=== PATIENT | male | born 1980 | race Caucasian/White ===

== ENCOUNTER 2017-02-07 10:05 | Emergency (ER) | payer OTHER ==
[2017-02-07 10:21] VITALS: TEMP 97.7
[2017-02-07] MEDS ORDERED: NS 1,000 ML IV ONE ×2 (10:33→11:32)
[2017-02-07] MEDS ORDERED: fentaNYL 100 MCG/2 ML INJ ONE (10:43)
--- NOTE | 2017-02-07 10:44 | CPEKG ---
Heart Rate: 159 RR Interval: 377 QRSD Interval: 80 QT Interval: 292 QTC Interval: 476 QRS [place]: -55 T Wave [place]: 14 EKG Severity - ABNORMAL ECG - EKG Impression: A-FLUTTER W/ PREDOM 2:1 AV BLOCK, A-RATE 326 EKG Impression: LEFT ANTERIOR FASCICULAR BLOCK Electronically Signed By: Petra Sarmiento 07-Feb-2017 17:07:34
--- NOTE | 2017-02-07 10:46 | EDPHY ---
H & P Stated Complaint: Passed out at work; R shoulder/rib pain;hit head;stopped diabetic meds~1wk Source: Patient Exam Limitations: No limitations - Personal History Current Tetanus Diphtheria and Acellular Pertussis (TDAP): Yes - Medical/Surgical History Hx Diabetes: Yes Other PMH: diabetic. back problems - Social History Smoking Status: Former smoker HPI/ROS: CHIEF COMPLAINT: Syncope, head injury, right shoulder pain HISTORY OF PRESENT ILLNESS: Patient was at work. He was standing looking at a serpentine belt when he lost consciousness. He denies any chest pain or shortness of breath. No fever chills. He did strike his head and has a headache. He also complains of severe right shoulder pain. No abdominal pain. No injuries to the legs or left arm. History of syncope in the past with no formal workup per EKG. No history of seizures. No history of coronary artery disease. Does have a history of diabetes. He stopped his medications recently due to Chantix. He was on metformin and glipizide. No other associated complaints or modifying factors. He arrives by private vehicle with a friend driving him here. REVIEW OF SYSTEMS: Ten systems reviewed and are negative unless otherwise noted in the HPI PAST MEDICAL HISTORY: Diabetes SOCIAL HISTORY: Smoker currently trying to quit. Works at [employer] FAMILY HISTORY: Noncontributory EXAMINATION General Appearance: Alert, no distress Head: normocephalic. Abrasion and small hematoma to the right frontal forehead. No hematoma. No Carbajal sign. No raccoon eyes. Eyes: Pupils equal and round, no conjunctival pallor or injection. EOMs intact. ENT, Mouth: Mucous membranes moist. Airway patent. Neck: Normal inspection, supple, non-tender. No crepitus, step-off or deformity. Trachea is midline Respiratory: Lungs are clear to auscultation. No wheezing, rhonchi or crackles Cardiovascular: Regular rate and rhythm. No murmur. Pulses intact distally. Gastrointestinal: Abdomen is soft and nontender Back: non-tender, no bony abnormalities Neurological: GCS 15. A&O, cranial nerves 2-12 grossly intact. nonfocal. Strength symmetric in all 4 limbs. Skin: Warm and dry, no rash. Abrasion to the right forehead. No other lacerations or contusions Extremities: Severe tenderness of the right shoulder. Unable to range the right shoulder. Obvious step-off of the right shoulder glenohumeral joint. Neurovascular intact distally. Range of motion of the right elbow and wrist is intact. Psychiatric: Mood and affect normal DIFFERENTIAL DIAGNOSES: Including but not limited to syncope, shoulder dislocation, atrial flutter, AFib , sinus tachycardia, dehydration, ACS MDM: 10:45 a.m. Syncope with closed head injury, right shoulder dislocation. EKG does reveal a flutter with a rate of 159. The patient is awake and alert. Pressure is normal. Move him to trauma room a proceed with rate control measures. 11:00 a.m. Repeat EKGs after Valsalva maneuvers reveal sinus tachycardia and subsequently normal sinus rhythm. He remains on the quality assurance monitor final. He is awake and alert. No acute distress. Normal blood pressure. I have attempted to reduce the right shoulder with lidocaine injection. There is improvement of the appearance of the shoulder and difficulty developed this was successful. He has receive IV fentanyl and we will add IV Valium. He has been evaluated by Dr. Sarmiento. X-ray pending 11:40 a.m. X-ray reveals no dislocation of the shoulder. No obvious fracture. There is complete disruption of the right AC joint. Chest x-ray otherwise unremarkable. Vital signs remained stable. He does have multiple PVCs on the monitor. No malignant rhythm. Normal pressure. Proceed with CT scan of the head and admission to the hospital. 12:25 p.m. Notified by radiologist Dr. Mcelroy that the CT scan of the head is unremarkable. CT scan cervical spine is unremarkable. There is incidental note of a nondisplaced right 3rd rib fracture. I have re-evaluated the patient. He is resting comfortably. He is awake and alert. Normal pressure. Sinus rhythm on the monitor. I recommend admission to the hospital. Thus far he is declining. He would like to speak to his before he makes his final decision. He is doing so right now 1:[address] Sarmiento has also visit with the patient. He continues to decline admission. We discussed risks, benefits and alternatives in detail. This includes worsening condition, syncope or . He is alert and oriented. He is capable of understanding the risk. He is capable of making this decision and still chooses to go home despite this discussion. I will consult Cardiology to help expedite his follow-up given his refusal to be admitted. We will proceed with discharge against medical advice with formal AMA form. 1:10 p.m. I discussed the case with Dr. Murillo. He will come evaluate the patient in the emergency department shortly 1:[address] Murillo has evaluated the patient. He feels the patient needs a stress test and to be seen by an co chairman. Dr. Murillo actually recommends that the patient stay in the hospital but the patient continues to refuse. He says that if the patient still wants to sign out against medical advice, he would not recommend the following. He recommends metoprolol tartrate 25 mg every night. He recommends that the patient have a stress test performed. He recommends that the patient see an co chairman. He is provided the name of Dr. Pizarro as well as Dr. Beltran. The patient still wants to be discharge against medical advice but says he will follow up with these physicians accordingly. We discussed not operating any machinery or vehicles. We discussed follow up with Orthopedics regarding shoulder dislocation and AC separation. I instructed him to return to the emergency department should he change his mind regarding admission, have any chest pain, or have any further syncope I once again asked him to stay for admission continuing to decline. He will be discharged against medical advice with AMA form completed. He is stable at time of discharge. Normal sinus rhythm on the monitor at time of discharge. PROCEDURE: Closed reduction of right shoulder Consent: Verbal Location: Right shoulder Anesthesia: IV fentanyl, intra-articular lidocaine, 1% lidocaine plain, 7 mL Procedure: After lidocaine was injected into the joint the patient received IV fentanyl, attempted to reduce the right shoulder with traction/counter traction. I abduct the shoulder completely. There was improvement in the appearance of the shoulder but I did not feel a complete reduction. Complications: None Post-reduction film: No dislocation. No obvious fracture. There is complete AC disruption SUPERVISION: Patient was evaluated in conjunction with the supervising physician. Please see their note for details. (Sreedhar Sheridan) Constitutional: Initial Vital Signs Temperature (C) 36.5 C 02/07/17 10:10 Heart Rate 90 02/07/17 10:10 Respiratory Rate 18 02/07/17 10:10 Blood Pressure 100/73 02/07/17 10:10 O2 Sat (%) 96 02/07/17 10:10 O2 Delivery Mode Room Air O2 (L/minute) 4 Allergies/Adverse Reactions: Penicillins Allergy (Mild, Verified 02/07/17 10:17) Rash Home Medications: Medication Instructions Recorded Hydrocodone/APAP 5/325 [[place] 1 - 2 tab PO Q4H PRN #14 tab 02/07/17 5/325 (*)] Ibuprofen [Motrin (*)] 200 mg PO DAILY PRN 02/07/17 Metoprolol Tartrate [Lopressor 25 25 mg PO HS #30 tab 02/07/17 mg (*)] Varenicline Tartrate [Chantix 1MG 1 mg PO BID 02/07/17 (*)] Medical Decision Making - Diagnostics EKG Interpretation: 12 lead EKG is interpreted in Trace master View by emergency department physician. The 1st EKG showed atrial flutter. 2nd EKG showed what appears to be atrial fibrillation, discussed with Dr. Murillo. 30 EKG shows sinus rhythm. I have reviewed all of the EKGs. (Petra Sarmiento) ED Course/Re-evaluation: I have evaluated and participated in the management of this patient. My co- signature indicates that I have reviewed this chart and that I agree with the findings and the plan of care as documented. My personal history and physical findings include: 36-year-old male with a history of type 2 diabetes who presents by private vehicle after a syncopal episode. He has had syncope in the past. Today he struck his head and complains of headache. He also complains of shoulder pain and on examination has a right shoulder dislocation. At the time of my initial evaluation he was undergoing shoulder reduction. monitoring analyst showed a sinus tachycardia. He was awake and alert. Breath sounds were clear. The shoulder was successfully reduced in the emergency department by the physician resident care assistant. He is noted to have a grade 3 AC separation. His initial EKG showed atrial flutter with subsequent sinus rhythm. No medication was given, he converted spontaneously. Head and neck imaging negative for acute injury. He has remained neurologically intact in the department. It is my opinion that his syncopal episode is due to cardiac tachy arrhythmia. Hospitalization was strongly recommended. He has both if her asleep refused. I have spoken to him about this. My expectation is that he will leave against medical advice. Dr. Murillo of Cardiology was kind enough to see him in the emergency department. He also recommended hospitalization. The patient continues to refuse. The patient is able to make his own medical decisions and understands the risks and benefits, including the risk of recurrent arrhythmia, syncope, and even . He is started on low-dose beta-brittanie. He is given referrals to electrophysiologists. (Petra Sarmiento) - Data Points Laboratory Results: Laboratory Results 02/07/17 10:45 02/07/17 10:45 Medications Given: Discontinued Medications Diazepam (Valium Injection) 2 mg IVP EDNOW ONE Stop: 02/07/17 11:00 Last Admin: 02/07/17 11:04 Dose: 2 mg Fentanyl (Sublimaze) 100 mcg IVP EDNOW ONE Stop: 02/07/17 10:48 Last Admin: 02/07/17 10:48 Dose: 100 mcg Sodium Chloride (Ns) 1,000 mls @ 0 mls/hr IV ONCE ONE; Wide Open PRN Reason: Protocol Stop: 02/07/17 10:34 Last Admin: 02/07/17 10:48 Dose: 1,000 mls Sodium Chloride (Ns) 1,000 mls @ 0 mls/hr IV ONCE ONE PRN Reason: Wide Open Stop: 02/07/17 11:33 Last Admin: 02/07/17 11:34 Dose: 1,000 mls Departure - Departure Disposition: Against Medical Advice Clinical Impression: Syncope and collapse, Atrial flutter, Acromioclavicular (joint) (ligament) sprain Condition: Good Instructions: Atrial Flutter (ED), A-fib (Atrial Fibrillation) (ED), Shoulder Dislocation (ED), Syncope (ED), Shoulder Sprain (ED) Additional Instructions: 1. Return to the emergency department immediately should you change your mind or for any chest pain or syncope 2. Do not operate any vehicles or machinery until seen by Cardiology and primary care physician 3. Follow up with patient placement coordinator for outpatient stress test and further EP evaluation. Call Dr. Pziarro at [phone] 4. Metoprolol as prescribed Referrals: Deric Hall MD [Medical Doctor] - As per Instructions Alphonse Gamino DO [Primary Care Provider] - As per Instructions Mahamed Beltran MD [Medical Doctor] - As per Instructions Prescriptions: Hydrocodone/APAP 5/325 [[place] 5/325 (*)] 1 - 2 tab PO Q4H PRN #14 tab PRN Reason: Pain, Moderate Metoprolol Tartrate [Lopressor 25 mg (*)] 25 mg PO HS #30 tab
[2017-02-07] MEDS ORDERED: fentaNYL 100 MCG/2 ML INJ IVP ONE (10:47)
[2017-02-07 10:54] LABS: % IMMATURE GRANULYOCYTES 0.5 % (0.0-1.1); ABSOLUTE IMMATURE GRANULOCYTES 0.04 10^3/uL (0.00-0.10); ADD DIFF? NO; ADD MORPH? NO; ADD SCAN? NO; ATYPICAL LYMPHOCYTE FLAG 0 (0-99); FRAGMENT RBC FLAG 0 (0-99); HEMATOCRIT 47.3 % (40.0-51.0); HEMOGLOBIN 16.8 g/dL (13.7-17.5); LEFT SHIFT FLG 0 (0-99); LIPEMIA HEMOLYSIS FLAG 90 (0-99); MEAN CELL HEMOGLOBIN 31.5 pg (27.9-34.1); MEAN CELL HEMOGLOBIN CONCENTR. 35.5 g/dL (32.4-36.7); MEAN CELL VOLUME 88.7 fL (81.5-99.8); MEAN PLATELET VOLUME 9.6 fL (8.7-11.7); PLATELET CLUMPS FLAG 10 (0-99); PLATELET COUNT 294 10^3/uL (150-400); RED BLOOD CELL COUNT 5.33 10^6/uL (4.40-6.38); RED CELL DISTRIBUTION WIDTH 11.9 % (11.5-15.2)
[2017-02-07] MEDS ORDERED: DIAZEPAM 10 MG/2 ML SYR IVP ONE (10:59)
[2017-02-07 11:08] LABS: ALANINE AMINOTRANSFERASE 51 IU/L (21-72); ALKALINE PHOSPHATASE 58 IU/L (38-126); ANION GAP 17 mEq/L (8-16); ASPARTATE AMINOTRANSFERASE 35 IU/L (17-59); BILIRUBIN,TOTAL 1.1 mg/dL (0.1-1.4); BILIRUBIN-CONJUGATED 0.4 mg/dL (0.0-0.5); BILIRUBIN-UNCONJUGATED 0.7 mg/dL (0.0-1.1); CALCIUM 10.3 mg/dL (8.5-10.4); CARBON DIOXIDE 21 mEq/l (22-31); CHLORIDE 100 mEq/L (97-110); CREATININE 0.7 mg/dL (0.7-1.3); GLOMERULAR FILTRATION RATE > 60; GLUCOSE 213 mg/dL (70-100); SODIUM 138 mEq/L (134-144); TOTAL PROTEIN 8.5 g/dL (6.3-8.2)
[2017-02-07 11:20] LABS: TROPONIN I < 0.012 ng/mL (0-0.034)
--- NOTE | 2017-02-07 13:47 | PDCONSULT ---
Mine Analyst Note: Chief complaint: syncope Requesting physician: ER team HPI: Patient is a 36 y/o male with history of DM, but recent cessation of therapy (rational was not clear), but no HTN, HLP, or CAD, who presented to ER after syncope. Event was without prodrome - no dizziness, lightheadedness, weakness, or fatigue. No complaints of chest pains or pressure, no PND orthopnea. Patient does have smoking history (quit about 3 weeks ago and is using Chantix) . Similar event was noted 5-6 months ago, but the event in the past had a prodrome for the patient. At that time, he was able to sit down, but even with this action, the patient succumbed to syncope. PCP evaluation, per patient, with concerns about "hypoglycemia". No formal cardiovascular work up was undertaken. The patient did report that he has had "events" in the past, but did not clarify the specifics of the events other than "passing out in the past ". ECG in the ER with notable atrial flutter (rate of 160 bpm, and 2:1 block). Imaging studies with grade III AC separation to right shoulder. Excoriation to the right forehead with CT imaging to head revealing no acute patholoyg. Reduction of the right shoulder in the ER was successful, and the patient converted to sinus tachycardia/sinus rhythm without medications or cardiovascular procedures. ER staff with recommendations for admission given the presentation - syncope with tachyarrhythmia - but the patient was simply wanting to go home, against medical advice. Call to cardiology for assistance with discussion of options, or possible convincing the patient to stay for evaluation. Twelve point review of systems was unremarkable outside of that which was mentioned above. PMHx: (1) DM - uncertain why therapies were stopped, but would reassess A1C to determine if this is therapy that should be continued (2) no HTN (3) no HLP (4) No CAD FHx: Father passed at age 40 secondary to "large heart attack" Grandfather with history of CHF SHx: Tobacco abuse history (recent cessation on Chantix patch) Social alcohol No illicits (including marijuana) Works at [employer] (co worker was present in the ER with patient) Allergies to PCN with unspecified reaction Currently Chantix therapy only (no other prescribed therapy) PE: vitals as below GEN: awake and alert in NAD SKIN: excoriation to right forehead secondary to fall, no other obvious rash or erythema HEENT: NCAT (mild haematoma to the right forehead), ENT were unremarkable NECK: supple with out JVD LUNGS: CTA bilaterally without crackles, wheeze, or rales COR: RRR without murmurs/rubs/gallops. Normal S1S2, no S3, PMI was non displaced ABD: soft, NTND with NABS EXT: no c/c/e, normal DP/PT pulses (2+), normal radial pulses (2+). NEURO: no focal deficits were noted Labs: no elevation in cardiac biomarker (troponin was normal). Laboratory Tests 02/07/17 02/07/17 10:45 10:45 WBC 8.79 Hgb 16.8 Hct 47.3 Plt Count 294 Sodium 138 Potassium 4.0 Chloride 100 Carbon Dioxide 21 L Anion Gap 17 H BUN 10 Creatinine 0.7 Glucose 213 H Troponin I < 0.012 Several ECGs with initial ECG revealing atrial flutter with rate of 160 bpm. 2: 1 conduction was noted. Subsequent ECG with conversion to sinus tachycardia and normal sinus rhythm. The second ECG in the series from the ER appeared to be atrial fibrillation, not flutter given the degree of irregularity noted. Imaging studies were reviewed with grade III AC separation to the right shoulder. Unremarkable CXR. Assessment: Agree with recommendation on the part of the ER team to have the patient admitted for observation. He was unwilling to pursue this recommendation. Would provide the patient with low dose beta brittanie (metoprolol tartrate 25 mg PO QHS) given blood pressure and heart rate would tolerate this dose, which may assist with some decrease in the patient's ability to revisit the tachycardia appreciated. Would have outpatient ETT arranged for assessment of CV risk as well as the patient's ability to revisit the noted arrhythmia. Finally, phone numbers for EP (Dr. Dionne Beltran, Dr. Oscar Haile, and Dr. Young Pizarro) were to be provided to the patient for follow up post testing, and to facilitate further discussion about options given the arrhythmia noted in the ER today. Patient was in agreement with these plans. Recommendations to refrain from tobacco use were reiterated.
[2017-02-07 14:15] VITALS: BP 132/88; PULSE 84; RESP 16; O2SAT 98
--- NOTE | 2017-02-07 15:49 | CPEKG ---
Heart Rate: 92 RR Interval: 652 P-R Interval: 140 QRSD Interval: 82 QT Interval: 344 QTC Interval: 426 P [place]: 36 QRS [place]: -24 T Wave [place]: 29 EKG Severity - OTHERWISE NORMAL ECG - EKG Impression: SINUS RHYTHM EKG Impression: BORDERLINE LEFT AXIS DEVIATION Electronically Signed By: Petra Sarmiento 07-Feb-2017 17:07:23
== END 2017-02-07 14:13 | disposition left against medical advice (07) ==
PROC: 0RSJXZZ Reposition Right Shoulder Joint, External Approach (ICD-10-PCS; principal; 2017-02-07)
DX: S43.004A Unspecified dislocation of right shoulder joint, initial encounter (principal); S43.51XA Sprain of right acromioclavicular joint, initial encounter; I48.92 Unspecified atrial flutter; R55 Syncope and collapse; E86.9 Volume depletion, unspecified; E11.9 Type 2 diabetes mellitus without complications; Z87.891 Personal history of nicotine dependence; X58.XXXA Exposure to other specified factors, initial encounter; Y92.69 Other specified industrial and construction area as the place of occurrence of the external cause; Y99.0 Civilian activity done for income or pay; Y93.89 Activity, other specified
CPT/HCPCS: 82947-QW; 96374; A4565; J3010

== ENCOUNTER 2017-03-30 05:28 | Day surgery (SDC) | payer OTHER, BC ==
[~2017-03-30 05:28] MED LIST: ceFAZolin 2 GM/DEXTROSE 100 ML IV ONE
[2017-03-30] MEDS ORDERED: LIDOCAINE 1% 2 ML INJ ID PRN (06:01)
[2017-03-30] MEDS ORDERED: LR 1,000 ML IV ONE (06:01)
[2017-03-30] MEDS ORDERED: BUPIVACAINE/EPI 0.5% 30 ML SDV ONE (06:59)
--- NOTE | 2017-03-30 07:05 | PDHPUP ---
History & Physical Update H&P update statement: This history and physical update is based on an assessment of the patient which was completed after admission or registration (within 24 hours), but prior to the surgery/procedure. H&P update: H&P reviewed & patient examined, no change in patient's condition since H&P completed
[2017-03-30] MEDS ORDERED: CEFAZOLIN 2 GM/DEXTROSE/100 ML BAG IV ONE (07:09)
[2017-03-30 07:10] LABS: ANION GAP 12 mEq/L (8-16); CARBON DIOXIDE 24 mEq/l (22-31); CHLORIDE 102 mEq/L (97-110); POTASSIUM 4.4 mEq/L (3.5-5.2); SODIUM 138 mEq/L (134-144); SPECIMEN HEMOLYSIS 125
[2017-03-30] MEDS ORDERED: PROPOFOL 200 MG/20 ML VIAL ONE (07:19)
[2017-03-30] MEDS ORDERED: ROCURONIUM 100 MG/10 ML VIAL ONE (07:19)
[2017-03-30] MEDS ORDERED: LIDOCAINE 2% 100 MG/5 ML SYR ONE (07:19)
[2017-03-30] MEDS ORDERED: METOCLOPRAMIDE 10 MG/2 ML VIAL ONE (07:19)
[2017-03-30] MEDS ORDERED: RANITIDINE 50 MG/2 ML VIAL ONE (07:19)
[2017-03-30] MEDS ORDERED: KETOROLAC 30 MG/1 ML SDV ONE (07:19)
[2017-03-30] MEDS ORDERED: MIDAZOLAM 2 MG/2 ML VIAL ONE (07:23)
[2017-03-30] MEDS ORDERED: PHENYLEPHRINE HCL 100 MCG/ML SYR ONE (07:50)
--- NOTE | 2017-03-30 08:38 | PDANEPAE ---
ANE Past Medical History - Cardiovascular History Hx Hypertension: Yes Hx Arrhythmias: Yes Hx Chest Pain: No Hx Coronary Artery / Peripheral Vascular Disease: No Hx CHF / Valvular Disease: No Hx Palpitations: Yes Cardiovascular History Comment: irregular will see customer energy specialist in a month - Pulmonary History Hx COPD: No Hx Asthma/Reactive Airway Disease: No Hx Recent Upper Respiratory Infection: No Hx Oxygen in Use at Home: No Hx Sleep Apnea: No Sleep Apnea Screening Result - Last Documented: Positive - Neurologic History Hx Cerebrovascular Accident: No Hx Seizures: No Hx Dementia: No - Endocrine History Hx Diabetes: Yes - Renal History Hx Renal Disorders: No - Liver History Hx Hepatic Disorders: No - Neurological & Psychiatric Hx Hx Neurological and Psychiatric Disorders: No - Cancer History Hx Cancer: No - Congenital Disorder History Hx Congenital Disorders: No - GI History Hx Gastrointestinal Disorders: No - Chronic Pain History Chronic Pain: No - Surgical History Prior Surgeries: right ACL, right knee scope ANE Review of Systems Review of Systems: - Exercise capacity METS (RN): 5 METS ANE Patient History - Allergies Allergies/Adverse Reactions: Penicillins Allergy (Mild, Verified 03/30/17 06:14) Rash - Home Medications Home Medications: Ibuprofen [Motrin (*)] 200 mg PO DAILY PRN 02/07/17 [Last Taken 03/09/17] Aspirin 81mg (*) 03/30/17 [Last Taken 03/29/17 08:30] GLIPIZIDE 10 mg 03/30/17 [Last Taken 03/29/17 08:30] Metformin 1000 mg 1,000 mg 03/30/17 [Last Taken 03/29/17 08:30] Multivit Infusn,Adult 1,Vit K 03/30/17 [Last Taken 03/29/17 08:30] Pioglitazone HCl 45 mg 03/30/17 [Last Taken 03/29/17 08:30] Vitamin D3 5,000 iunits 03/30/17 [Last Taken 03/29/17 08:30] - NPO status NPO Since - Liquids (Date): 03/29/17 NPO Since - Liquids (Time): 23:50 NPO Since - Solids (Date): 03/29/17 NPO Since - Solids (Time): 23:00 - Smoking Hx Smoking Status: Former smoker ANE Labs/Vital Signs - Labs Result Diagrams: 03/30/17 06:30 - Vital Signs Blood Pressure: 141/76 Heart Rate: 60 Respiratory Rate: 16 O2 Sat (%): 94 Height: 190.5 cm Weight: 92.986 kg ANE Physical Exam - Airway Neck exam: FROM Mallampati Score: Class 2 Mouth exam: normal dental/mouth exam - Pulmonary Pulmonary: no respiratory distress - Cardiovascular Cardiovascular: regular rate and rhythym - ASA Status ASA Status: III ANE Anesthesia Plan Anesthesia Plan: general endotracheal anesthesia Urgent/Emergent Case: Tommie lee completed preop but documented later for safe timely pt care
[2017-03-30] MEDS ORDERED: LR 500 ML IV PRN (10:29)
[2017-03-30] MEDS ORDERED: fentaNYL 100 MCG/2 ML INJ IVP PRN (10:29)
[2017-03-30] MEDS ORDERED: NALOXONE HCL 0.4 MG/ML INJ IVP PRN (10:29)
[2017-03-30] MEDS ORDERED: ACETAMINOPHEN 500 MG TAB PO PRN (10:29)
[2017-03-30] MEDS ORDERED: ONDANSETRON 4 MG/2 ML VIAL IVP PRN (10:29)
[2017-03-30] MEDS ORDERED: ALBUTEROL 3 ML DEYVIAL IH PRN (10:29)
[2017-03-30] MEDS ORDERED: OXYCODONE/APAP 5/325 TAB PO PRN (10:29)
[2017-03-30] MEDS ORDERED: HYDROmorphONE/DILAUDID 1 MG/ML INJ IVP PRN (10:29)
[2017-03-30] MEDS ORDERED: HYDROCODONE/APAP 5/325 TAB PO PRN (10:29)
[2017-03-30] MEDS ORDERED: MEPERIDINE 25 MG/ML SYR IVP PRN (10:29)
--- NOTE | 2017-03-30 10:29 | POSTANESTH ---
Post Anesthetic Evaluation Cardiovascular Status: Normal, Stable Respiratory Status: Normal, Stable Level of Consciousness/Mental Status: Can Participate in Eval Pain Control: Adequate, Prn Tx Ordered Nausea/Vomiting Control: Adequate, Prn Tx Ordered Complications Possibly Related to Anesthesia: None Noted
[2017-03-30] MEDS ORDERED: ONDANSETRON 4 MG/2 ML VIAL ONE (10:54)
--- NOTE | 2017-03-30 10:58 | POSTOPPROG ---
Post Op Note Date of Operation: 03/30/17 Surgeon: Iliana Sutherland Addiction Social Worker: Ana Travis PA-C Anesthesiologist: Dr. Lamb Anesthesia: GET(General Endotracheal) Pre-op Diagnosis: right shoulder pain Post-op Diagnosis: right coracoclavicular reconstruction Indication: right shoulder pain Procedure: right coracoclavicular reconstruction Inf/Abcess present in the surg proc area at time of surgery?: No EBL: 50-100 Complications: none
--- NOTE | 2017-03-30 11:00 | SOAPPROG ---
SOAP Progress Note Assessment/Plan: Assessment/Plan: s/p right coracoclavicular reconstruction - sling at all times, ok to straighten elbow - orders as written - keep incision clean and dry - f/u in 7-10 days, call with issues or concerns - dc when PACU criteria met 03/30/17 10:59 Subjective: No pain, mild nausea Objective: Vital Signs Temp Pulse Resp BP Pulse Ox 36.4 C 60 16 141/76 H 94 03/30/17 10:22 03/30/17 08:38 03/30/17 08:38 03/30/17 08:38 03/30/17 08:38 Laboratory Results 03/30/17 06:30 NAD, well appearing, no distress EOMi, face symmetric MAEx4 incision CDI ICD10 Worksheet Patient Problems: Problems Problem Status Onset Coracoclavicular (ligament) sprain and strain Acute - ICD10 Problem Qualifiers (1) Coracoclavicular (ligament) sprain and strain
[2017-03-30 11:48] VITALS: O2SAT 97
[2017-03-30 12:37] VITALS: BP 102/87; PULSE 57; RESP 16; TEMP 97.9
== END 2017-03-30 14:12 | disposition home or self-care (01) ==
LOC: FSGY 05:28
PROVIDERS: ATTEND Orthopaedic Surgery
PROC: 0RSG04Z Reposition Right Acromioclavicular Joint with Internal Fixation Device, Open Approach (ICD-10-PCS; principal; 2017-03-30 07:15)
DX: S43.121A Dislocation of right acromioclavicular joint, 100%-200% displacement, initial encounter (principal); E11.9 Type 2 diabetes mellitus without complications
CPT/HCPCS: C1713; C1762; J0690; J1885; J2001; J2250; J2370; J2405; J2704; J2765; J2780